=== PATIENT | female | born 1990 | race Caucasian/White ===

== ENCOUNTER 2017-08-28 09:43 | Emergency (ER) | payer SELFPAY ==
[2017-08-28] MEDS: NS 0.9% 1000 ML* 2,000 ML IV ONE ×2 (10:00→11:09)
[2017-08-28] MEDS ORDERED: Ondansetron INJ* 2 MG/ML VIAL IV ONE (10:21)
[2017-08-28 10:57] LABS: ABS Basophils 0 10^3/ul (0-0.2); ABS Eosinophils 0 10^3/ul (0-0.6); ABS Lymphocytes 0.5 10^3/ul (1.0-4.8); ABS Monocytes 0.7 10^3/ul (0-0.8); ABS Nucleated RBC 0 10^3/ul; Eosinophil % 0.4 % (0-6); Hematocrit 35 % (35-47); Hemoglobin 12.6 g/dl (12.0-16.0); Lymphocyte % 8.9 % (25-47); Mean Corpuscular HGB Conc 36 g/dl (31-36); Mean Corpuscular Hemoglobin 33 pg (27-31); Mean Corpuscular Volume 92 fL (80-97); Mean Platelet Volume 9.5 um3 (7.4-10.4); Nucleated Red Blood Cells % 0.1; Platelet Count 145 10^3/ul (150-450); Red Blood Count 3.85 10^6/ul (4.0-5.4); Red Cell Distribution Width 14 % (10.5-15); White Blood Count 5.2 10^3/ul (3.5-10.8)
--- NOTE | 2017-08-28 11:08 | ED ---
Nausea/Vomiting/Diarrhea HPI - HPI Summary HPI Summary: Patient is a 27-year-old female presents emergency department for nausea, vomiting and lower abdominal cramping times early this morning. Patient is currently 14.5 weeks . She has been following with OB and has had a confirmed intrauterine without complications thus far. She is A0. She denies vaginal discharge or bleeding, urinary symptoms. Admits to constipation 3 days. She states she believes she had a fever but did not take her temperature. Symptoms are moderate in severity. She notes that her daughter was sick with similar symptoms yesterday. No current modifying factors. - History of Current Complaint Chief Complaint: EDNauseaVomitCasandraarrdang Stated Complaint: VOMITING, 14 WEEKS Time Seen by Provider: 08/28/17 10:13 Pain Intensity: 7 - Allergies/Home Medications Allergies/Adverse Reactions: Allergies Allergy/AdvReac Type Severity Reaction Status Date / Time amoxicillin Allergy Hives Verified 08/28/17 10:00 Home Medications: Home Medications Vitamin TAB* 1 tab PO DAILY 08/28/17 [History Confirmed 08/28/17] PMH/Surg Hx/FS Hx/Imm Hx Previously Healthy: Yes Infectious Disease History: No Infectious Disease History: Denies: Traveled Outside the [place] in Last 30 Days - Social History Occupation: Unemployed Lives: With Family Alcohol Use: None Substance Use Type: Reports: None Smoking Status (MU): Never Smoked Tobacco Review of Systems Positive: Chills Eyes: Negative ENT: Negative Cardiovascular: Negative Respiratory: Negative Positive: Abdominal Pain, Vomiting, Nausea Genitourinary: Negative Negative: burning, dysuria, discharge, frequency, hematuria Musculoskeletal: Negative Neurological: Negative All Other Systems Reviewed And Are Negative: Yes Physical Exam Triage Information Reviewed: Yes Vital Signs On Initial Exam: Initial Vitals Temp Pulse Resp BP Pulse Ox 99.6 F 84 20 118/68 100 08/28/17 09:45 08/28/17 09:45 08/28/17 09:45 08/28/17 09:45 08/28/17 09:45 Vital Signs Reviewed: Yes Appearance: Positive: Well-Appearing - Patient sitting up in bed in no acute distress. Skin: Positive: Warm, Dry, Other Head/Face: Positive: Normal Head/Face Inspection Eyes: Positive: Normal ENT: Positive: Other - Oropharynx is injected with mild edema, no significant tonsillar edema or exudates. Hoarse voice noted. Neck: Positive: Supple Respiratory/Lung Sounds: Positive: Clear to Auscultation, Breath Sounds Present Cardiovascular: Positive: Normal, RRR Abdomen Description: Positive: Other: - Abdomen soft and nontender throughout. No rebound tenderness or guarding. No rigidity. Negative Pérez sign. No CVA tenderness bilaterally. Musculoskeletal: Positive: Normal Neurological: Positive: Normal, CN Intact II-III Psychiatric: Positive: Normal Diagnostics - Vital Signs Vital Signs Temp Pulse Resp BP Pulse Ox 08/28/17 10:05 112/69 08/28/17 09:45 99.6 F 84 20 118/68 100 - Laboratory Lab Results: Lab Results 08/28/17 Range/Units 10:29 WBC 5.2 (3.5-10.8) 10^3/ul RBC 3.85 L (4.0-5.4) 10^6/ul Hgb 12.6 (12.0-16.0) g/dl Hct 35 (35-47) % MCV 92 (80-97) fL MCH 33 H (27-31) pg MCHC 36 (31-36) g/dl RDW 14 (10.5-15) % Plt Count 145 L (150-450) 10^3/ul MPV 9.5 (7.4-10.4) um3 Neut % (Auto) 77.5 (38-83) % Lymph % (Auto) 8.9 L (25-47) % Dawes % (Auto) 12.8 H (0-7) % Eos % (Auto) 0.4 (0-6) % Baso % (Auto) 0.4 (0-2) % Absolute Neuts (auto) 4.0 (1.5-7.7) 10^3/ul Absolute Lymphs (auto) 0.5 L (1.0-4.8) 10^3/ul Absolute Monos (auto) 0.7 (0-0.8) 10^3/ul Absolute Eos (auto) 0 (0-0.6) 10^3/ul Absolute Basos (auto) 0 (0-0.2) 10^3/ul Absolute Nucleated RBC 0 10^3/ul Nucleated RBC % 0.1 Result Diagrams: 08/28/17 10:29 08/28/17 10:29 Lab Statement: Any lab studies that have been ordered have been reviewed, and results considered in the medical decision making process. Naus/Vom/Diarrhea Course/Dx - Course Course Of Treatment: Patient presenting to the ear for nausea, vomiting and abdominal cramping. Her daughter had similar symptoms yesterday. She does have a low-grade temp here of 99.6F, vital signs are otherwise stable. We'll check basic labs and urinalysis. Patient started on IV fluids and Zofran. Suspect viral etiology. Will also check heart tones. She's had no vaginal bleeding or discharge. Labs unremarkable other than mildly low potassium. Urinalysis negative for infection but does show mild dehydration with elevated specific gravity and ketones. Patient did spike a fever of 102.9 F in the ear. Tylenol was ordered. Rapid strep and influenza were added as well. Negative strep. Positive flu B. Reexamination patient is resting comfortably. Results were discussed. She's had no vomiting in the emergency Department and is tolerating oral fluids. Did offer her Tamiflu which she declines. Description for Zofran sent if needed. Advised patient Tylenol for pain and fever at home as directed. Increase fluids and rest. To follow-up with PCP and return to the ER if symptoms change or worsen. - Differential Dx/Diagnosis Differential Diagnoses - Female: , Urinary Tract Infection, Vomiting, Colitis Condition At Discharge: Good Discharge - Sign-Out/Discharge Documenting (check all that apply): Discharge - Discharge Plan Condition: Good Disposition: HOME Prescriptions: Ondansetron ODT TAB* [Zofran 4 MG Odt TAB*] 4 mg PO Q6H PRN #9 tab.odt PRN Reason: Nausea Patient Education Materials: Influenza (ED) Forms: *Work Release Referrals: Delfina LALA,Dakota Hendrix [Primary Care Provider] - Additional Instructions: Call PCP today for a follow up appointment Increase fluids and rest Zofran as directed for nausea Tylenol for pain and fever as directed Return to ER if symptoms change or worsen - Billing Disposition and Condition Condition: GOOD Disposition: HOME
[2017-08-28 11:17] LABS: EGFR Non-African American 104.6 (>60)
[2017-08-28] MEDS ORDERED: Acetaminophen TAB* 325 MG PO ONE (12:37)
[2017-08-28] MEDS ORDERED: NS 0.9% 1000 ML* 1,000 ML IV ONE (12:49)
[2017-08-28 13:16] LABS: Urine Appearance Clear; Urine Blood Negative (Negative); Urine Color Straw; Urine Ketones 1+ (Negative); Urine Protein Negative (Negative); Urine Specific Gravity 1.009 (1.010-1.030); Urine Urobilinogen Negative (Negative)
[2017-08-28 13:56] VITALS: BP 118/62
== END 2017-08-28 14:07 | disposition home or self-care (01) ==
LOC: ED 09:43
DX: O21.0 Mild hyperemesis gravidarum (principal); O99.282 Endocrine, nutritional and metabolic diseases complicating pregnancy, second trimester; O98.519 Other viral diseases complicating pregnancy, unspecified trimester; E86.0 Dehydration; J10.1 Influenza due to other identified influenza virus with other respiratory manifestations; Z3A.14 14 weeks gestation of pregnancy
CPT/HCPCS: 36415; 80053; 81003; 83690; 85025; 87502; 87651; 96360; 96374; 99283; A9270-GY; J2405